=== PATIENT | female | born 1955 | race Two or more races ===

== ENCOUNTER 2018-12-22 11:12 | Emergency (ER) | payer BC, OTHER ==
[2018-12-22 11:31] VITALS: BP 128/70; PULSE 95; TEMP 98.4; BMI 29.2
[2018-12-22] MEDS ORDERED: KETOROLAC TROMETHAMINE 30 MG/1 ML VIAL IVPUSH ONE (12:20)
[2018-12-22] MEDS ORDERED: KETOROLAC TROMETHAMINE 15 MG/ML VIAL ONE (12:35)
[2018-12-22 13:15] LABS: HEMOGLOBIN 11.9 GM/dl (10.7-15.3); MCHC 32.1 g/dl (32.0-36.0); MEAN CELL VOLUME 83.9 fl (80-96); PLATELET COUNT 79 K/MM3 (134-434); RBC 4.41 M/mm3 (3.60-5.2); RDW 13.4 % (11.6-15.6); WHITE BLOOD COUNT 8.3 K/mm3 (4.0-10.8)
[2018-12-22 13:28] LABS: CREATININE 0.9 mg/dl (0.55-1.3); POTASSIUM 4.2 mmol/L (3.5-5.1); TOT PROT 7.6 g/dl (6.4-8.2)
[2018-12-22 13:29] LABS: BILIRUBIN,TOTAL 0.4 mg/dl (0.2-1)
[2018-12-22 13:40] LABS: PLATELET ESTIMATE DECREASED
--- NOTE | 2018-12-22 13:55 | PDOC ---
History of Present Illness - General Chief Complaint: Back Pain Stated Complaint: BACK PAIN Time Seen by Provider: 12/22/18 11:22 History Source: Patient, Spouse Exam Limitations: No Limitations - History of Present Illness Initial Comments: 12/22/18 13:49 CHIEF COMPLAINT: Low back pain for 7 days HISTORY OF PRESENT ILLNESS: 63-year-old female, retired development specialist, presents complaining of spontaneous onset of lower lumbar pain across the right and left lower back in the lower lumbar region and sacral region. The pain radiates to both sides. It does not radiate to the legs. The pain is worse in the morning when awakening, and gets a little bit better during the course of the day. Patient has difficulty changing position from lying to standing, and also has worsening pain when sitting for more than a very brief time. There is no numbness or weakness in the legs. There is no saddle anesthesia. There is no change in control of bowel or bladder function. There is no history of trauma or falls. There is no history of fever or chills. REVIEW OF SYSTEMS: GENERAL/CONSTITUTIONAL: No fever or chills. No weakness. No weight change. HEAD, EYES, EARS, NOSE AND THROAT: No change in vision. No ear pain or discharge. No sore throat. CARDIOVASCULAR: No chest pain or shortness of breath. Positive history of hypertension on medication. RESPIRATORY: No cough, wheezing, or hemoptysis. GASTROINTESTINAL: No nausea, vomiting, diarrhea or constipation. No rectal bleeding. GENITOURINARY: No dysuria, frequency, or change in urination. Patient states she has nocturia, but this is a chronic problem. MUSCULOSKELETAL: Positive low back pain. No other joint swelling or pain. No neck pain. SKIN AND BREASTS: No rash or easy bruising. NEUROLOGIC: No headache, vertigo, loss of consciousness, or loss of sensation. PSYCHIATRIC: No depression or anxiety. ENDOCRINE: No increased thirst. No abnormal weight change. Positive history of diabetes mellitus on metformin HEMATOLOGIC/LYMPHATIC: No anemia, easy bleeding, or history of blood clots. ALLERGIC/IMMUNOLOGIC: No hives or skin allergy. No latex allergy. Past History - Past Medical History Allergies/Adverse Reactions: Allergies Allergy/AdvReac Type Severity Reaction Status Date / Time No Known Allergies Allergy Verified 12/22/18 11:15 Home Medications: Ambulatory Orders Atorvastatin Ca [Lipitor] 10 mg PO DAILY 12/15/13 Lisinopril [Prinivil] 20 mg PO DAILY 12/15/13 Cyclobenzaprine HCl [Flexeril -] 10 mg PO HS PRN #7 tablet 12/22/18 Multivit,Calc,Mins/Iron/Folic [One-A-Day Women's Tablet] 1 each PO DAILY Naproxen [Naprosyn -] 375 mg PO BID PRN #20 tablet 12/22/18 metFORMIN HCL [Metformin HCl ER] 750 mg PO BID 12/22/18 COPD: No Diabetes: Yes HTN: Yes Hypercholesterolemia: Yes - Surgical History Cholecystectomy: Yes - Psycho Social/Smoking Cessation Hx Smoking History: Never smoked Hx Alcohol Use: No Drug/Substance Use Hx: No Substance Use Type: None *Physical Exam - Vital Signs Last Vital Signs Temp Pulse Resp BP Pulse Ox 98.4 F 95 H 16 128/70 98 12/22/18 11:13 12/22/18 11:13 12/22/18 11:13 12/22/18 11:13 12/22/18 11:13 - Physical Exam Comments: 12/22/18 13:52 GENERAL: The patient is awake, alert, and fully oriented, in no acute distress. The patient grimaces with moderate pain when changing position from lying to sitting, or to standing. She also has some pain when turning on the stretcher. She is splinting her lower back. HEAD: Normal with no signs of trauma. EYES: Pupils equal, round and reactive to light, extraocular movements intact, sclera anicteric, conjunctiva clear. ENT: Ears normal, nares patent, oropharynx clear without exudates. Moist mucous membranes. NECK: Normal range of motion, supple without lymphadenopathy, JVD, or masses. LUNGS: Breath sounds equal, clear to auscultation bilaterally. No wheezes, and no crackles. HEART: Regular rate and rhythm, normal S1 and S2 without murmur, rub or gallop. ABDOMEN: Soft, nontender, normoactive bowel sounds. No guarding, no rebound. No masses. EXTREMITIES: Normal range of motion, no edema. No clubbing or cyanosis. No cords, erythema, or tenderness. BACK: There is paralumbar tenderness bilaterally, no bony spine tenderness throughout the spine. NEUROLOGICAL: Cranial nerves II through XII grossly intact. Normal speech, normal gait. Sensation and strength was tested normal in all 4 extremities. No saddle anesthesia. PSYCH: Normal mood, normal affect. SKIN: Warm, Dry, normal turgor, no rashes or lesions noted. ED Treatment Course - LABORATORY CBC & Chemistry Diagram: 12/22/18 13:05 12/22/18 13:05 - ADDITIONAL ORDERS Additional order review: Laboratory Results 12/22/18 12/22/18 13:05 12:36 Sodium 139 Potassium 4.2 Chloride 102 Carbon Dioxide 28 Anion Gap 9 BUN 12.0 Creatinine 0.9 Est GFR (CKD-EPI)AfAm 79.42 Est GFR (CKD-EPI)NonAf 68.53 Random Glucose 136 H Calcium 9.0 Total Bilirubin 0.4 AST 21 ALT 26 Alkaline Phosphatase 91 Total Protein 7.6 Albumin 4.0 Urine Color Yellow Urine Appearance Clear Urine pH 5.0 Urine Protein Negative Urine Glucose (UA) Negative Urine Ketones Negative Urine Blood Negative Urine Nitrite Negative Urine Bilirubin Negative Urine Urobilinogen 0.2 Ur Leukocyte Esterase Negative 12/22/18 13:05 RBC 4.41 MCV 83.9 MCHC 32.1 RDW 13.4 MPV 11.0 Neutrophils % No Result Required. Lymphocytes % No Result Required. - RADIOLOGY Radiology Studies Ordered: Category Date Time Status SPINE-LUMBAR SACRAL [RAD] Stat Radiology 12/22/18 12:20 Completed - Medications Given in the ED: ED Medications Discontinued Medications Generic Name Dose Route Start Last Admin Trade Name Freq PRN Reason Stop Dose Admin Ketorolac Tromethamine 15 mg 12/22/18 12:20 12/22/18 13:05 Toradol Injection - IVPUSH 12/22/18 12:21 15 mg ONCE ONE Administration Medical Decision Making - Medical Decision Making 12/22/18 13:55 63-year-old female presents with atraumatic lumbar back pain. She is having increased symptoms every morning, suggesting possible osteoarthritis. There is no history of cancer. There is no history of spinal disease or prior arthritis. On examination, there are signs of lower back stiffness, but no bony tenderness. The abdomen is benign. Laboratory work-up is unremarkable. Lumbosacral spine x-ray shows mild arthritic changes, but quite mild for the patient's age. Impression: Musculoskeletal low back pain. Patient to take analgesic medications and anti-inflammatory medications, to follow-up with her primary care physician in 1 week, and to return to the emergency department as needed for progressive or more severe symptoms. Laboratory Results - last 24 hr 12/22/18 12/22/18 12/22/18 12:36 13:05 13:05 WBC 8.3 RBC 4.41 Hgb 11.9 Hct 37.0 MCV 83.9 MCH 27.0 MCHC 32.1 RDW 13.4 Plt Count 79 L MPV 11.0 Absolute Neuts (auto) 4.9 Neutrophils % No Result Required. Neutrophils % (Manual) 64.0 Lymphocytes % No Result Required. Lymphocytes % (Manual) 40.0 Monocytes % (Manual) 3 L Eosinophils % (Manual) 3.0 Platelet Estimate Decreased Platelet Comment Few giant plts Sodium 139 Potassium 4.2 Chloride 102 Carbon Dioxide 28 Anion Gap 9 BUN 12.0 Creatinine 0.9 Est GFR (CKD-EPI)AfAm 79.42 Est GFR (CKD-EPI)NonAf 68.53 Random Glucose 136 H Calcium 9.0 Total Bilirubin 0.4 AST 21 ALT 26 Alkaline Phosphatase 91 Total Protein 7.6 Albumin 4.0 Urine Color Yellow Urine Appearance Clear Urine pH 5.0 Urine Protein Negative Urine Glucose (UA) Negative Urine Ketones Negative Urine Blood Negative Urine Nitrite Negative Urine Bilirubin Negative Urine Urobilinogen 0.2 Ur Leukocyte Esterase Negative Vital Signs - 24 hr 12/22/18 11:13 Temperature 98.4 F Pulse Rate 95 H Respiratory 16 Rate Blood Pressure 128/70 O2 Sat by Pulse 98 Oximetry (%) Discharge - Discharge Information Problems reviewed: Yes Clinical Impression/Diagnosis: Low back pain Qualifiers: Chronicity: acute Back pain laterality: bilateral Sciatica presence: without sciatica Qualified Code(s): M54.5 - Low back pain Condition: Good Disposition: HOME - Admission No - Additional Discharge Information Prescriptions: Cyclobenzaprine HCl [Flexeril -] 10 mg PO HS PRN #7 tablet PRN Reason: Back Pain Naproxen [Naprosyn -] 375 mg PO BID PRN #20 tablet PRN Reason: Back Pain - Follow up/Referral Referrals: Zhao Weaver MD [Primary Care Provider] - CoMatt MD [Staff Physician] - Call tomorrow - Patient Discharge Instructions Patient Printed Discharge Instructions: DI for Low Back Pain Additional Instructions: Today you were evaluated for low back pain. The x-ray shows minimal arthritic changes. The blood tests and urine tests were normal. You are advised to rest , begin back strengthening physical therapy exercises, use a warm heating pad as needed, and take the medication as prescribed. Follow-up with your primary care physician this week and follow-up with Dr. Matt Lloyd, orthopedic surgeon, specializing in disease of the spine, this coming week. Return to the emergency department for any severe or progressive symptoms. - Post Discharge Activity
== END 2018-12-22 14:13 | disposition home or self-care (01) ==
LOC: FER 11:12
PROC: 3E0333Z Introduction of Anti-inflammatory into Peripheral Vein, Percutaneous Approach (ICD-10-PCS; principal; 2018-12-22)
DX: M54.5 Low back pain (principal); I10 Essential (primary) hypertension; E11.9 Type 2 diabetes mellitus without complications; E78.00 Pure hypercholesterolemia, unspecified
CPT/HCPCS: 36415; 72100-TC-FY; 80053; 81003; 85025; 99282-25